=== PATIENT | male | born 1960 | race Caucasian/White ===

== ENCOUNTER 2025-01-02 11:21 | Emergency (ER) | payer OTHER, MEDICAID ==
[~2025-01-02] VITALS: Ht 170.2 cm; Wt 91.0 kg
[2025-01-02 11:27] VITALS: TEMP 36.7; O2SAT 97
[2025-01-02 11:53] VITALS: TEMP 98.1
[2025-01-02] MEDS: ACETAMINOPHEN 325MG TABLET PO STA (11:53)
[2025-01-02] MEDS: ONDANSETRON 4MG ODT PO STA (11:53)
[2025-01-02 12:18] LABS: BASOPHILS % 0.3 % (0.0-2.0); EOSINOPHILS % 3.0 % (0.0-5.0); HEMATOCRIT. 44.4 % (42.0-52.0); HEMOGLOBIN. 14.5 g/dL (14.0-18.0); LYMPHOCYTES % 27.2 % (20.0-50.0); MEAN PLATELET VOLUME 8.7 fl (7.4-10.4); MONOCYTES % 6.9 % (2.0-8.0); NEUTROPHILS % 62.6 % (40.0-76.0); PLATELET 230 x1000/uL (130-400); RED BLOOD CELL COUNT 5.40 mill/uL (4.7-6.1); RED CELL DISTRIBUTION WIDTH 14.3 % (11.6-14.6)
[2025-01-02 12:29] LABS: INR 1.0
[2025-01-02 12:34] LABS: CREATININE 0.9 mg/dL (0.6-1.3); ETHANOL BLOOD < 10 mg/dL (<10); TROPONIN I HIGH SENSITIVITY < 4 ng/L (3.0-53); UREA NITROGEN BLOOD 14 mg/dL (9-23)
[2025-01-02 12:36] LABS: ASPARTATE AMINOTRANSFERASE 30 IU/L (<34); BILIRUBIN DIRECT 0.2 mg/dL (<=3.0); BILIRUBIN TOTAL 0.7 mg/dL (0.1-1.0); PROTEIN TOTAL 6.8 g/dL (6.0-8.3)
[2025-01-02 13:26] LABS: CLARITY URINE CLEAR (CLEAR); COLOR URINE YELLOW (YELLOW); GLUCOSE URINE NEGATIVE (NEGATIVE); KETONES URINE TRACE (NEGATIVE); NITRITE URINE NEGATIVE (NEGATIVE); OCCULT BLOOD URINE NEGATIVE (NEGATIVE); PH URINE 6.5 (4.5-8.0); PROTEIN URINE NEGATIVE (NEGATIVE); SPECIFIC GRAVITY URINE 1.022 (1.005-1.030)
[2025-01-02 13:27] LABS: LEUKOCYTE ESTERASE URINE NEGATIVE (NEGATIVE); UROBILINOGEN URINE 1.0 E.U./dL (0.2-1.0)
[2025-01-02 13:32] LABS: *AMPHETAMINES SCREEN URINE NEGATIVE (NEGATIVE); *BARBITURATES SCREEN URINE NEGATIVE (NEGATIVE); *BENZODIAZEPINES SCREEN URINE NEGATIVE (NEGATIVE); *COCAINE SCREEN URINE NEGATIVE (NEGATIVE); CANNABINOID URINE SCREEN NEGATIVE (NEGATIVE); ECSTASY MDMA SCREEN URINE NEGATIVE (NEGATIVE); METHADONE URINE SCREEN NEGATIVE (NEGATIVE); OPIATES URINE SCREEN NEGATIVE (NEGATIVE); PHENCYCLIDINE URINE SCREEN NEGATIVE (NEGATIVE)
[2025-01-02 15:50] VITALS: BP 146/96; PULSE 67; RESP 18; O2SAT 98
== END 2025-01-02 15:51 | disposition home or self-care (01) ==
LOC: ER 11:21
DX: M54.50 Low back pain, unspecified (principal); R42 Dizziness and giddiness; I10 Essential (primary) hypertension; R11.2 Nausea with vomiting, unspecified; G20.A1 Parkinson's disease without dyskinesia, without mention of fluctuations; Z79.899 Other long term (current) drug therapy
CPT/HCPCS: 80076; 80305; 80048; 81003; 80320; 83690; 85025; 85610; 84484; 36415; 71045; 70450; 74176; 93005; 99285; Q0162; G0480